=== PATIENT | female | born 1985 | race Caucasian/White ===

== ENCOUNTER 2020-12-12 11:34 | Emergency (ER) | payer BC ==
[2020-12-12 11:56] VITALS: BP 101/66; PULSE 80; BMI 26.5
[2020-12-12] MEDS ORDERED: BAMLANIVIMAB 700 MG, ETESEVIMAB 1,400 MG in SODIUM CHLORIDE 250 ML IVPB ONE (12:10)
[2020-12-12 12:31] LABS: BASO % 0.5 % (0-2.0); EOS % 2.7 % (0-4.5); HEMATOCRIT 40.9 % (32.4-45.2); HEMOGLOBIN 13.7 GM/dL (10.7-15.3); LYMPH % 38.6 % (8-40); MCH 31.1 pg (25.7-33.7); MCHC 33.6 g/dl (32.0-36.0); MEAN CELL VOLUME 92.4 fl (80-96); MONO % 8.9 % (3.8-10.2); NEUT % 49.3 % (42.8-82.8); PLATELET COUNT 199 K/MM3 (134-434); RBC 4.43 M/mm3 (3.60-5.2); RDW 11.9 % (11.6-15.6); WHITE BLOOD COUNT 5.1 K/mm3 (4.0-10.0)
[2020-12-12 13:11] VITALS: TEMP 97.9
[2020-12-12 13:18] LABS: POTASSIUM 4.3 mmol/L (3.5-5.1)
[2020-12-12 13:21] LABS: CALCIUM 9.6 mg/dL (8.5-10.1)
[2020-12-12 13:22] LABS: BLOOD UREA NITROGEN 9.7 mg/dL (7-18)
[2020-12-12 13:25] LABS: CREATININE 0.6 mg/dL (0.55-1.3)
== END 2020-12-12 16:02 | disposition home or self-care (01) ==
LOC: JCOVINFU 11:34
DX: U07.1 COVID-19 (principal)
CPT/HCPCS: 36415; 80048; 85025; 99284-25; M0239; Q0239; Q0245